=== PATIENT | male | born 1985 | race African-American/Black ===

== ENCOUNTER 2018-10-22 13:20 | Emergency (ER) | payer OTHER ==
[~2018-10-22] VITALS: Ht 188 cm; Wt 102.1 kg
--- NOTE | 2018-10-22 14:39 | NUR ---
Patient discharged to home in stable conditon. Written and verbal after care instructions given. Patient verbalizes understanding of instructions.
== END 2018-10-22 14:41 | disposition home or self-care (01) ==
LOC: ER 13:20
DX: S80.12XA Contusion of left lower leg, initial encounter (principal); Z88.0 Allergy status to penicillin; W21.00XA Struck by hit or thrown ball, unspecified type, initial encounter; Y93.89 Activity, other specified; Y92.89 Other specified places as the place of occurrence of the external cause; Y99.8 Other external cause status
CPT/HCPCS: 73590; A4663

== ENCOUNTER 2020-04-13 14:53 | Emergency (ER) | payer SELFPAY ==
[~2020-04-13] VITALS: Ht 185.4 cm; Wt 89.8 kg
--- NOTE | 2020-04-13 15:14 | NUR ---
Medical examination by DR Epps in proccess.
[2020-04-13] MEDS ORDERED: CLONIDINE HCL 0.2 MG TABLET PO ONE (15:30)
[2020-04-13] MEDS ORDERED: CLONIDINE HCL 0.2 MG TABLET ONE (16:17)
--- NOTE | 2020-04-13 16:34 | NUR ---
Pt states feeling better, BP decreased to 145/90.
[2020-04-13 16:39] VITALS: BP 145/90
== END 2020-04-13 16:39 | disposition home or self-care (01) ==
LOC: ER 14:53
DX: I10 Essential (primary) hypertension (principal); Z82.49 Family history of ischemic heart disease and other diseases of the circulatory system
CPT/HCPCS: A4663